=== PATIENT | male | born 1930 | race Two or more races ===

== ENCOUNTER 2017-05-12 09:07 | Outpatient (CLI) | payer OTHER ==
[~2017-05-12 09:07] MED LIST: ACCUPRIL40 MG PO; CLONAZEPAM0.5 MG PO; COZAAR25 MG PO; GLUCOTROL10 MG PO; HYDROCHLOROTHIA25 MG PO; HYDROCHLOROTHIAZIDE; LEVAQUIN500 MG PO; LISINOPRIL2.5 MG; MEDROL4 MG PO; PROTECT PLUS S1 EACH PO; ZYNCOF 20-400120 ML PO
== END 2017-05-12 09:18 | disposition home or self-care (01) ==
LOC: LAB 09:07
DX: I10 Essential (primary) hypertension (principal); E55.9 Vitamin D deficiency, unspecified; E11.51 Type 2 diabetes mellitus with diabetic peripheral angiopathy without gangrene; E11.42 Type 2 diabetes mellitus with diabetic polyneuropathy; E11.65 Type 2 diabetes mellitus with hyperglycemia; E78.89 Other lipoprotein metabolism disorders; M81.0 Age-related osteoporosis without current pathological fracture; M89.8X8 Other specified disorders of bone, other site; M15.8 Other polyosteoarthritis; G62.89 Other specified polyneuropathies; G30.8 Other Alzheimer's disease